=== PATIENT | male | born 1935 | race Caucasian/White ===

== ENCOUNTER 2022-11-25 14:44 | Outpatient (CLI) | payer MEDICARE | END 2022-11-25 14:45 | disposition home or self-care (01) | LOC: CSHMRI 14:44 | PROVIDERS: ATTEND Family Medicine | DX: M48.061 Spinal stenosis, lumbar region without neurogenic claudication (principal); M47.816 Spondylosis without myelopathy or radiculopathy, lumbar region; Z98.890 Other specified postprocedural states; R90.89 Other abnormal findings on diagnostic imaging of central nervous system; N28.1 Cyst of kidney, acquired | CPT/HCPCS: 72148 ==

== ENCOUNTER 2024-02-22 08:51 | Day surgery (SDC) | payer MEDICARE ==
[2024-02-22 09:36] VITALS: BP 110/77; TEMP 97.4
[2024-02-22 10:22] LABS: Anion Gap 14 mmol/L (10-20); BUN (Urea Nitrogen) 24 mg/dL (8.4-25.7); Calc. Creatinine Clearance 65 mL/min (70-130); Calcium 9.4 mg/dL (7.8-10.44); Carbon Dioxide 20 mmol/L (23-31); Chloride 110 mmol/L (98-107); Estimated GFR 65; Glucose 98 mg/dL (83-110); Potassium 4.1 mmol/L (3.5-5.1); Sodium 140 mmol/L (136-145)
[2024-02-22] MEDS ORDERED: Phenylephrine 10 MG/ML VIAL ONE (10:50)
[2024-02-22] MEDS ORDERED: PROPOFOL 20 ML ONE (10:50)
== END 2024-02-22 11:46 | disposition home or self-care (01) ==
LOC: CSHSDC 08:51
PROVIDERS: ATTEND Specialist
PROC: 5A2204Z Restoration of Cardiac Rhythm, Single (ICD-10-PCS; principal; 2024-02-22)
DX: I48.92 Unspecified atrial flutter (principal); I48.19 Other persistent atrial fibrillation; I65.29 Occlusion and stenosis of unspecified carotid artery; I35.1 Nonrheumatic aortic (valve) insufficiency; I34.0 Nonrheumatic mitral (valve) insufficiency; I11.0 Hypertensive heart disease with heart failure; I50.42 Chronic combined systolic (congestive) and diastolic (congestive) heart failure; E78.2 Mixed hyperlipidemia; Z96.659 Presence of unspecified artificial knee joint; Z79.01 Long term (current) use of anticoagulants; Z79.899 Other long term (current) drug therapy
CPT/HCPCS: 80048; 92960; 93005 ×2; J2371; J2704; 93010